=== PATIENT | male | born 1965 | race Caucasian/White ===

== ENCOUNTER → 2017-11-04 | Outpatient (CLI) | payer OTHER ==
[~2017-11-04] VITALS: Ht 172.7 cm; Wt 54.4 kg
--- NOTE | ~2017-11-04 | EKG ---
[address] [address] ELECTROCARDIOGRAM REPORT Name: PERLITA TURNER Room #: REG CLI Anni#: [id number] Admission: 11/04/17 Attend Phys: Dayo Celis MD Discharge: Date of : 61 Report #: [id number] THIS REPORT FOR: //name// Test Date: 2017-11-04 Test Time: 09:56:52 Pat Name: PERLITA TURNER Department: Room: Gender: A&P Technician: agatha : 1965 Requested By: Greta Juárez Order Number: [id number] MD: Feliciano Arambula Measurements Intervals [place] Rate: 117 P: 84 RI: 167 QRS: -57 QRSD: 78 T: 72 QT: 316 QTc: 441 Interpretive Statements Sinus tachycardia Biatrial enlargement Anterior infarct, old Compared to ECG 02/03/2005 07:10:54 Electronically Signed On 11-04-2017 14:04:07 CDT by Feliciano Arambula [email or web address] <ELECTRONICALLY SIGNED> By: Feliciano Arambula MD 11/04/17 1404 [id number] 5 Feliciano Arambula MD /DENNY
[2017-11-04 10:06] LABS: HEMATOCRIT 45.1 % (42.0-52.0); HEMOGLOBIN 15.4 gm/dL (14.0-18.0); MCH 32.4 pg (26.0-34.0); MCHC 34.1 g/dL (28.0-37.0); RBC 4.74 mil/uL (4.50-6.00); RDW 12.4 % (10.5-14.5); WBC 8.1 thou/uL (4.0-11.0)
== END | disposition home or self-care (01) ==
LOC: GI 09:17
PROVIDERS: Anesthesiology
DX: C15.4 Malignant neoplasm of middle third of esophagus (principal); K22.2 Esophageal obstruction; K44.9 Diaphragmatic hernia without obstruction or gangrene; K29.70 Gastritis, unspecified, without bleeding; F17.210 Nicotine dependence, cigarettes, uncomplicated

== ENCOUNTER 2018-01-20 15:45 | Emergency (ER) | payer OTHER ==
[~2018-01-20] VITALS: Ht 175.3 cm; Wt 49.9 kg
[2018-01-20 17:06] LABS: HEMOGLOBIN 15.6 gm/dL (14.0-18.0)
[2018-01-20 17:08] LABS: MCH 33.9 pg (26.0-34.0); MCV 99.6 fL (80.0-100.0); PLATELET COUNT 355 thou/uL (150-400); RBC 4.62 mil/uL (4.50-6.00); WBC 3.3 thou/uL (4.0-11.0)
[2018-01-20 17:11] LABS: CALCIUM 10.6 mg/dL (8.5-10.1); POTASSIUM 4.2 mmol/L (3.5-5.1)
[2018-01-20 17:49] LABS: ABSOLUTE NEUTROPHILS 1.4 thou/uL (1.4-8.2)
[2018-01-20 17:50] LABS: ANISOCYTOSIS 1+; BURR CELLS 1+
== END 2018-01-20 18:37 ==
LOC: ER 15:45
PROVIDERS: Emergency Medicine
DX: R13.10 Dysphagia, unspecified (principal); Z85.01 Personal history of malignant neoplasm of esophagus; F17.210 Nicotine dependence, cigarettes, uncomplicated

== ENCOUNTER → 2018-02-20 | Outpatient (CLI) | payer OTHER | LOC: RAD 10:48 → SPEECH 11:11 → RAD 11:28 | DX: C15.4 Malignant neoplasm of middle third of esophagus (principal); R13.12 Dysphagia, oropharyngeal phase ==

== ENCOUNTER → 2018-02-23 | Outpatient (CLI) | payer OTHER | LOC: RAD 08:55 | DX: C15.4 Malignant neoplasm of middle third of esophagus (principal); R13.14 Dysphagia, pharyngoesophageal phase ==

== ENCOUNTER 2018-09-25 12:06 | Inpatient (IN) | payer OTHER ==
[2018-09-25] VITALS (16 sets, daily range): BP systolic 96–126; BP diastolic 51–79
[~2018-09-25] VITALS: Ht 175.3 cm; Wt 48.7 kg
--- NOTE | ~2018-09-25 | HC ---
[facility] [place] [address] CONSULTATION Name: PERLITA TURNER Room #: 240-P ADM IN M.R.#: [id number] Admission: 09/25/18 ������������������ Attend Phys: Gene Tucker MD Discharge: ������������������ Date of : 61 Report #: [id number] THIS REPORT FOR: //name// CC: Antonio De Paz REASON FOR CONSULTATION: History of esophageal cancer and melena. HISTORY OF PRESENT ILLNESS: The patient is a 53-year-old gentleman who has been a patient of mine for about 8 months. I had first seen him in 11/2017. He had had an EGD in October that showed a squamous cell carcinoma. Unfortunately, he had metastasis to the liver at the time of diagnosis. He began FOLFOX chemotherapy and had response, but because of fatigue and side effects, chemotherapy was last given in late April of 2018. He has been on observation since that time. He has continued having dysphagia troubles. He recently reports that he has been having some dark tarry stools for maybe several days. He has also had some coughing when he lies down. He will see some slight blood streaking in it. When he came to the Emergency Room yesterday for evaluation, he was found to have a hemoglobin that was quite low at 6.5. He has had a unit or two of blood and his hemoglobin is 6.8 this morning. Note that also at the same time, his platelets were 628, his white count is 9.7. The differential is fairly normal. His coags are normal. His chemistries are notable for a BUN yesterday at 29, creatinine of 0.8, glucose of 153, calcium was 11.7 yesterday and today 10.0, no albumin drawn. REVIEW OF SYSTEMS: The patient denies any headache, any vision troubles, any mouth sores. Does have the trouble swallowing. Does have some occasional phlegm, especially when he lies down and coughs at night. He does continue to smoke. He is not aware of any new skin lesions. Does think his weight is probably down a little bit further. He still urinates. He has not had any ankle swelling. He has not really had any bony pains. PAST MEDICAL HISTORY: Notable for the history of the esophageal cancer diagnosed in 10/2017. Had chemotherapy and has been on break, and talking with the patient, he does not think he would like to start chemotherapy again. He also has the history of dysphagia with the tube for tube feeding. He also has a history of tobacco use and also alcohol misuse in the past. FAMILY HISTORY AND SOCIAL HISTORY: Noncontributory. MEDICATIONS: Here in the hospital currently include pantoprazole 40 b.i.d., IV fluids, MiraLax as needed, nitroglycerin p.r.n., Zofran p.r.n. [address] [address] CONSULTATION Name: PERLITA TURNER Room #: 240-P [facility] IN M.R.#: [id number] Admission: 09/25/18 ������������������ Attend Phys: Gene Tucker MD Discharge: ������������������ Date of : 61 Report #: [id number] PHYSICAL EXAMINATION: GENERAL: The patient appears his stated age. VITAL SIGNS: His height is 5 feet 9 inches, 175.3 cm. Weight is 107.3 pounds or 48.67 kilograms. Blood pressure is 122/73, O2 sat 98, respirations 16, pulse 92. Afebrile with temperature at 97.8. MOOD: The patient is alert and pleasant, but somewhat quiet as usual. NEUROLOGIC: Face is symmetrical, moving arms and legs. LYMPHATICS: No enlarged lymph nodes in the neck or the axilla. ABDOMEN: Scaphoid, he has feeding tube in place. EXTREMITIES: Without clubbing, cyanosis or edema. DISCUSSION: I discussed with patient that he most likely has progressive disease. We talked about whether to start therapy and again now he says he does not really want to, which I would be very supportive of. We also briefly talked about that maybe he could have either hospice or visiting nurses when he goes home. We also discussed that he is most likely bleeding from somewhere in his esophagus that may be difficult for us to get to the scope because of the stricture. If he wanted to, we could be aggressive with things such as trying to simply identify bleeding source and chemoembolization. He does not seem very interested in pursuing that. He has asked if he might be able to go home later today. I told him that I would suggest we have the group social worker discuss with his to see what groupings of either group social worker or visiting nurses or hospice might be helpful. ASSESSMENT AND PLAN: 1. Stage IV squamous cell cancer. The patient does not wish an additional intervention from a chemotherapy point of view, I would be supportive of this. 2. Melena with drop in hemoglobin. Agree with transfusions. The patient does not wish an aggressive therapy, would consider hospice evaluation, to discuss with , though we could transfuse if the patient wishes. 3. Hypercalcemia. Given direction of care, I would not suggest further investigation at this time and the patient does not appear to be symptomatic. 4. Tube feeding. Could probably resume if GI evaluation has not been pursued. 5. History of tobacco misuse. Would encourage cessation, but at this point, would probably not make much difference. We will follow with you. ��������������������������������������������� ���������������������������������������� By: ��������������������������������������������� [id number] Khari Bettencourt MD /nt
[2018-09-25 12:47] LABS: EOSINOPHILS 0.3 % (0.0-3.0); MCHC 32.7 g/dL (28.0-37.0); RDW 13.4 % (10.5-14.5)
[2018-09-25 12:48] LABS: ABSOLUTE NEUTROPHILS 12.2 thou/uL (1.4-8.2); BASOPHILS 0.4 % (0.0-2.0); MCH 30.8 pg (26.0-34.0); MCV 94.4 fL (80.0-100.0); MONOCYTES 8.7 % (1.0-8.0); PLATELET COUNT 628 thou/uL (150-400); POLYS 83.6 % (36.0-66.0); WBC 14.5 thou/uL (4.0-11.0)
[2018-09-25 12:50] LABS: ANION GAP 12 mmol/L (7-16); BUN 29 mg/dL (7-18); CALCIUM 11.7 mg/dL (8.5-10.1); CHLORIDE 98 mmol/L (98-107); CO2 29 mmol/L (21-32); CREATININE 0.8 mg/dL (0.7-1.3); GLUCOSE 153 mg/dL (74-106); POTASSIUM 3.5 mmol/L (3.5-5.1); SODIUM 139 mmol/L (136-145)
[2018-09-25 12:51] LABS: HEMATOCRIT 19.9 % (42.0-52.0); HEMOGLOBIN 6.5 gm/dL (14.0-18.0)
[2018-09-25 12:59] LABS: TROPONIN-I <0.06 ng/mL (<0.06)
--- NOTE | 2018-09-25 13:00 | EKG ---
[place] [address] [place] [facility] [place] [address] ELECTROCARDIOGRAM REPORT Name: PERLITA TURNER Room #: PRE M.R.#: [id number] ������������������ Admission: ������������������ Attend Phys: Discharge: ������������������ Date of : 61 Report #: [id number] ����������������������������������������������������������������� [id number] THIS REPORT FOR: //name// [facility] ED Test Date: 2018-09-25 Test Time: 12:41:48 Pat Name: PERLITA TURNER Department: Room: Gender: M Instructor Watch Assembly: KIKE : 1965 Requested By: Candido Ugarte Order Number: [id number] MD: Darshan España Measurements Intervals [place] Rate: 129 P: 78 MD: 135 QRS: -24 QRSD: 76 T: 78 QT: 303 QTc: 444 Interpretive Statements Sinus tachycardia left atrial enlargement leftward axis deviation RSR' in V1 or V2, probably normal variant Compared to ECG 11/04/2017 09:56:52 no significant changes Electronically Signed On 09-25-2018 12:59:59 BRANCH CUSTOMER SERVICE REPRESENTATIVE by Darshan España [email or web address] ��������������������������������������������� <ELECTRONICALLY SIGNED> ���������������������������������������� By: Darshan España MD ��������������������������������������������� 09/25/18 1259 [id number] [id number] Darshan España MD /DENNY
[2018-09-25] MEDS ORDERED: POTASSIUM20 MEQ/15 PER TUBE (13:27)
[2018-09-25 13:59] LABS: APTT 32.4 Seconds (24.5-32.8); PROTIME 10.6 Seconds (9.3-11.4)
[2018-09-25 20:55] LABS: HEMATOCRIT 20.8 % (42.0-52.0)
--- NOTE | 2018-09-25 23:37 | NUR ---
PT ARRIVED FROM ED AT 2030. PT ALERT AND ORIENTED X4. DENIES ANY PAIN AT THIS TIME. PT SR ON THE MONITOR. ST WITH ACTIVITY 110s. NO ACTIVE BLEEDING NOTED. PT ABLE TO URINATE WITH URINAL. NO BM. VSS. PT ABLE TO URINATE WITH URINAL. IMPROVED HGB. WILL CONTINUE TO MONITOR.
[2018-09-26] VITALS (19 sets, daily range): BP systolic 101–154; BP diastolic 61–89
[2018-09-26 04:35] LABS: ABSOLUTE NEUTROPHILS 8.1 thou/uL (1.4-8.2); BASOPHILS 0.5 % (0.0-2.0); HEMATOCRIT 20.7 % (42.0-52.0); HEMOGLOBIN 6.8 gm/dL (14.0-18.0); MCHC 32.8 g/dL (28.0-37.0); RBC 2.24 mil/uL (4.50-6.00); WBC 9.7 thou/uL (4.0-11.0)
[2018-09-26 04:37] LABS: EOSINOPHILS 0.7 % (0.0-3.0); LYMPHOCYTES 8.4 % (24.0-44.0); MCH 30.3 pg (26.0-34.0); MCV 92.4 fL (80.0-100.0); MONOCYTES 7.3 % (1.0-8.0); POLYS 83.1 % (36.0-66.0); RDW 15.2 % (10.5-14.5)
[2018-09-26 04:38] LABS: PLATELET COUNT 465 thou/uL (150-400)
[2018-09-26 04:59] LABS: CREATININE 0.6 mg/dL (0.7-1.3); MAGNESIUM 1.9 mg/dL (1.8-2.4); POTASSIUM 3.5 mmol/L (3.5-5.1)
--- NOTE | 2018-09-26 09:56 | NUR ---
Nutrition: Pt admit with upper GIB, anemia, met stage 4 esophageal CA. GI intervention not planned and pt will likely D/C with hospice later today per nsg. Pt reports usual tube feeding bolus regimen of jevity 1.5 3-4 cans/daily at home. Weights have been trending upward from low of 93# last February. Current 107#, BMI 15.7. REC resume pt's usual bolus regimen. If IVFs D/C rec flush with 150 mL H20 after each can. RD will complete full evaluation if pt does not D/C.
--- NOTE | 2018-09-26 10:01 | NUR ---
Nutrition: REC resume pt's usual regimen of Jevity 1.5 bolus 3-4 cans/day based on tolerance. If IVFs D/C flush with 150 mL H20 after each can.
--- NOTE | 2018-09-26 10:02 | NUR ---
Nutrition: Pt seen due to BMI 15.7 and chronic tube feeds. Admit with upper GIB, anemia, met stage 4 esophageal CA. GI intervention not planned and pt will likely D/C with hospice later today per nsg. Usual tube feeding regimen is bolus Jevity 1.5 3-4 can/day based on tolerance. Weights have been trending upward from a low of 93# last February. Current weight 107#. REC resume usual regimen and if IVFs D/C flush with 150 mL H20 aft er each can.
[2018-09-26] MEDS ORDERED: LORAZEPAM I2 MG/1 M2 SUBLING (13:39)
[2018-09-26] MEDS ORDERED: PEPCID20 MG PER TUBE (13:39)
[2018-09-26] MEDS ORDERED: ACETAMINOPHEN325 M1 PO (13:39)
[2018-09-26] MEDS ORDERED: MIRALAX17 GM PO (13:39)
[2018-09-26] MEDS ORDERED: MSL20MG/ML SUBLING (13:39)
--- NOTE | 2018-09-26 14:14 | NUR ---
ASSESSMENT-PT LIVES IN A SPLIT LEVEL HOME WITH HIS SPOUSE. PT HAS STAGE IV ESOPHAGEAL CANCER AND HAS BEEN FOLLOWED BY DR MILNER. PT NOW INTERESTED IN GOING HOME WITH HOSPICE CARE. S/W OUTSIDE OF ROOM TO DISCUSS HOSPICE CARE OPTIONS - HOSPICE AT HOME, HOSPICE HOUSE AND HOSPICE AT A NURSING FACILITY. THEY ARE INTERESTED IN HOSPICE AT HOME AND WOULD LIKE TO USE HOSPICE. FAXED FACE SHEET, H&P, DRS ORDERS AND ONC CONSULTATION TO HOSPICE AND S/W FLAVIO TO GIVE THE REFERRAL. PREFERS FOR HOSPICE TO CONTACT HER TOMORROW TO ARRANGE A MEETING AT HOME. RN TO FAX SCRIPTS ONCE AVAILABLE. EMOTIONAL SUPPORT PROVIDED TO . FOLLOWING TO ASSIST WITH DC PLANNING.
--- NOTE | 2018-09-26 16:00 | NUR ---
PT ORIENTED X4. SLEEPING ON AND OFF MOST OF THE DAY TODAY. PT STATES THAT HE DOES NOT WANT TO PURSUE ANY FURTHER TREATMENT AND WANTS TO GO HOME ON HOSPICE. CASE MANAGEMENT HERE AND MET WITH PT'S FAMILY. PT GIVEN 2 UNITS OF PRBC'S TODAY PER ORDER. TOLERATED WELL. DC ORDERS RECIEVED DISCUSSED DC ORDERS WITH PT AND HIS AND THEY VERBALIZED UNDERSTANDING. DC BY PRIVATE CAR.
== END 2018-09-26 15:40 | disposition hospice, home (50) | DRG 374 ==
LOC: ER 12:06 → ICU 14:09 → EROBS 14:09 → ICU 20:20
PROVIDERS: Emergency Medicine; Nurse Practitioner; ADMIT Internal Medicine
PROC: 30233N1 Transfusion of Nonautologous Red Blood Cells into Peripheral Vein, Percutaneous Approach (ICD-10-PCS; principal; 2018-09-26)
DX: C15.9 Malignant neoplasm of esophagus, unspecified (principal); E43 Unspecified severe protein-calorie malnutrition; K92.2 Gastrointestinal hemorrhage, unspecified; C78.00 Secondary malignant neoplasm of unspecified lung; D62 Acute posthemorrhagic anemia; Z68.1 Body mass index [BMI] 19.9 or less, adult; R04.2 Hemoptysis; K92.1 Melena; Z51.5 Encounter for palliative care; Z66 Do not resuscitate; E83.52 Hypercalcemia; E86.0 Dehydration; K59.00 Constipation, unspecified; F17.210 Nicotine dependence, cigarettes, uncomplicated; Z85.01 Personal history of malignant neoplasm of esophagus; Z93.1 Gastrostomy status; Z92.21 Personal history of antineoplastic chemotherapy; Z79.899 Other long term (current) drug therapy
CPT/HCPCS: 10078